=== PATIENT | male | born 1950 | race African-American/Black ===

== ENCOUNTER 2017-07-26 18:46 | Inpatient (IN) | payer MEDICARE ==
[~2017-07-26] VITALS: Ht 172.7 cm; Wt 85.7 kg
[2017-07-26] MEDS ORDERED: FINA5TAB11 PO (18:54)
[2017-07-26] MEDS ORDERED: ASPI-986 PO (18:54)
[2017-07-26] MEDS ORDERED: LOSA25TA12 PO (18:54)
[2017-07-26] MEDS ORDERED: SAXA1TBM3 PO (18:54)
[2017-07-26] MEDS ORDERED: AMLO2.5T45 PO (18:54)
[2017-07-26] MEDS ORDERED: METF500T4 PO (18:54)
[2017-07-26] MEDS ORDERED: METO-293 PO (18:54)
[2017-07-26] MEDS ORDERED: METO-396 PO (18:54)
[2017-07-26 19:13] LABS: BASOPHILS % 0.8 % (0.0-2.0); EOSINOPHILS % 1.4 % (0.0-5.0); HEMATOCRIT. 38.1 % (42.0-52.0); HEMOGLOBIN. 13.3 g/dL (14.0-18.0); LYMPHOCYTES % 27.5 % (20.0-50.0); MEAN CORPUSCULAR HEMOGLOBIN 30.2 pg (28.0-32.0); MEAN CORPUSCULAR VOLUME 86.3 fL (80.0-94.0); MEAN PLATELET VOLUME 7.7 fl (7.4-10.4); MONOCYTES % 9.9 % (2.0-8.0); NEUTROPHILS % 60.4 % (40.0-76.0); PLATELET 211 x1000/uL (130-400); RED BLOOD CELL COUNT 4.42 mill/uL (4.7-6.1); RED CELL DISTRIBUTION WIDTH 14.1 % (11.6-14.6)
[2017-07-26 19:19] LABS: CHLORIDE 101 mEq/L (98-107); INR 1.1
[2017-07-26 19:27] LABS: CARBON DIOXIDE 26 mEq/L (21-32); ETHANOL BLOOD < 10 mg/dL; LDL CHOLESTEROL 75 mg/dL (5-100)
[2017-07-26 19:29] LABS: TROPONIN I < 0.02 ng/mL (0.00-0.04)
[2017-07-26] MEDS ORDERED: MAGNESIUM/ALUMINUM HYDROXIDE/SIMETHICONE 30ML UDC PO PRN (20:15)
[2017-07-26] MEDS ORDERED: NA PHOS,M-B/NA PHOS,DI-BA ENEMA 118ML PR PRN (20:15)
[2017-07-26] MEDS ORDERED: ACETAMINOPHEN 325MG TABLET PO PRN (20:15)
[2017-07-26] MEDS ORDERED: ONDANSETRON HCL 4MG/2ML VIAL IV PRN (20:15)
[2017-07-26] MEDS ORDERED: NITROGLYCERIN 0.4MG TABLET SL SL PRN (20:15)
[2017-07-26] MEDS ORDERED: TRAMADOL 50MG TABLET PO PRN (20:15)
[2017-07-26] MEDS ORDERED: DEXTROSE 50% WATER 50ML SYRINGE IV PRN (20:15)
[2017-07-26] MEDS ORDERED: IPRATROPIUM/ALBUTEROL 0.5-3(2.5)MG/3ML NEB INH PRN (20:15)
[2017-07-26] MEDS ORDERED: DOCUSATE SODIUM 100MG CAPSULE PO PRN (20:15)
[2017-07-26] MEDS ORDERED: CLONIDINE 0.1MG TABLET PO PRN (20:15)
[2017-07-26] MEDS ORDERED: DIPHENHYDRAMINE 50MG/ML VIAL IV PRN (20:15)
[2017-07-26 21:43] LABS: T4 FREE 1.16 ng/dL (0.76-1.46)
[2017-07-26 21:47] LABS: CLARITY URINE CLOUDY (CLEAR); COLOR URINE YELLOW (YELLOW); GLUCOSE URINE NEGATIVE (NEGATIVE); KETONES URINE NEGATIVE (NEGATIVE); LEUKOCYTE ESTERASE URINE TRACE (NEGATIVE); NITRITE URINE NEGATIVE (NEGATIVE); OCCULT BLOOD URINE NEGATIVE (NEGATIVE); PROTEIN URINE 2+ (NEGATIVE); SPECIFIC GRAVITY URINE 1.019 (1.005-1.030)
[2017-07-26 22:13] LABS: VITAMIN B12 SERUM 862 pg/mL (211-911)
[2017-07-26 22:15] LABS: *AMPHETAMINES SCREEN URINE NEGATIVE (NEGATIVE); *BARBITURATES SCREEN URINE NEGATIVE (NEGATIVE); *BENZODIAZEPINES SCREEN URINE NEGATIVE (NEGATIVE); *COCAINE SCREEN URINE NEGATIVE (NEGATIVE); CANNABINOID URINE SCREEN NEGATIVE (NEGATIVE); METHADONE URINE SCREEN NEGATIVE (NEGATIVE); OPIATES URINE SCREEN NEGATIVE (NEGATIVE); PHENCYCLIDINE URINE SCREEN NEGATIVE (NEGATIVE)
[2017-07-26 22:16] LABS: FOLIC ACID (FOLATE) SERUM > 20.00 ng/mL (>5.38)
[2017-07-26 22:36] LABS: CREATINE KINASE 115 IU/L (39-308); TROPONIN I < 0.02 ng/mL (0.00-0.04)
[2017-07-26 22:37] LABS: CREATINE KINASE MB FRACTION 2.5 ng/mL (0.5-3.6)
[2017-07-26 22:40] VITALS: BP 167/110
[2017-07-26 23:00] VITALS: BP 167/110
[2017-07-26] MEDS ORDERED: TAMS0.4C31 PO (23:36)
[2017-07-27] VITALS: BP 166/102
[2017-07-27 04:00] VITALS: BP 165/105
[2017-07-27] MEDS: INSULIN LISPRO 100 UNITS/ML SUBCUT SCH ×4 (06:40→21:00)
[2017-07-27] MEDS: BLOOD SUGAR DIAGNOSTIC STRIP TEST SCH ×4 (06:40→21:51)
[2017-07-27 08:00] VITALS: BP 164/103
[2017-07-27 08:02] LABS: CREATINE KINASE 97 IU/L (39-308); TROPONIN I < 0.02 ng/mL (0.00-0.04)
[2017-07-27] MEDS: ASPIRIN 325MG EC TABLET PO SCH (08:34)
[2017-07-27] MEDS: FAMOTIDINE 20MG/2ML VIAL IV SCH (08:34)
[2017-07-27] MEDS: ENOXAPARIN 40MG/0.4ML SYR SUBCUT SCH (08:35)
[2017-07-27 12:00] VITALS: BP 167/99
[2017-07-27 16:21] VITALS: BP 194/123
[2017-07-27 16:35] LABS: T4 FREE 1.25 ng/dL (0.76-1.46)
[2017-07-27 16:41] LABS: AMMONIA 52 uMol/L (<32)
[2017-07-27 20:00] VITALS: BP 179/102
[2017-07-27] MEDS: AMLODIPINE 10MG TABLET PO SCH (21:44)
[2017-07-27] MEDS: ATORVASTATIN CALCIUM 10MG TABLET PO SCH (21:44)
[2017-07-28] VITALS (7 sets, daily range): BP systolic 109–158; BP diastolic 63–108
[2017-07-28] MEDS ORDERED: CLONIDINE 0.1MG TABLET PO PRN (02:15)
[2017-07-28] MEDS: INSULIN LISPRO 100 UNITS/ML SUBCUT SCH ×4 (06:29→21:00)
[2017-07-28] MEDS: BLOOD SUGAR DIAGNOSTIC STRIP TEST SCH ×4 (06:29→21:00)
[2017-07-28] MEDS: ENOXAPARIN 40MG/0.4ML SYR SUBCUT SCH (08:20)
[2017-07-28] MEDS: ASPIRIN 325MG EC TABLET PO SCH (08:20)
[2017-07-28] MEDS: FAMOTIDINE 20MG/2ML VIAL IV SCH (08:20)
[2017-07-28] MEDS: AMLODIPINE 10MG TABLET PO SCH (08:21)
[2017-07-28] MEDS: ATORVASTATIN CALCIUM 10MG TABLET PO SCH (22:10)
[2017-07-29] VITALS (7 sets, daily range): BP systolic 127–158; BP diastolic 74–94
[2017-07-29] MEDS: BLOOD SUGAR DIAGNOSTIC STRIP TEST SCH ×5 (06:41→20:53)
[2017-07-29] MEDS: INSULIN LISPRO 100 UNITS/ML SUBCUT SCH ×5 (06:44→20:58)
[2017-07-29] MEDS: ASPIRIN 325MG EC TABLET PO SCH (09:04)
[2017-07-29] MEDS: FAMOTIDINE 20MG/2ML VIAL IV SCH (09:04)
[2017-07-29] MEDS: AMLODIPINE 10MG TABLET PO SCH (09:05)
[2017-07-29] MEDS: ENOXAPARIN 40MG/0.4ML SYR SUBCUT SCH (09:06)
[2017-07-29] MEDS ORDERED: CLOPIDOGREL 75MG TABLET PO SCH (10:00)
[2017-07-29 12:09] LABS: AMMONIA 34 uMol/L (<32)
[2017-07-29] MEDS ORDERED: CEFTRIAXONE 1 G PREMIX 50 ML IV SCH (16:00)
[2017-07-29] MEDS: ATORVASTATIN CALCIUM 10MG TABLET PO SCH (20:53)
== END 2017-07-29 21:25 | DRG 91 ==
LOC: ER 19:03 → 5WST 19:57 → SUPCPDRO 20:12 → ENRESERV 21:34
PROVIDERS: ADMIT Internal Medicine; ATTEND Internal Medicine
DX: G92 Toxic encephalopathy (principal); N17.0 Acute kidney failure with tubular necrosis; E72.20 Disorder of urea cycle metabolism, unspecified; E44.1 Mild protein-calorie malnutrition; D64.9 Anemia, unspecified; E11.9 Type 2 diabetes mellitus without complications; R26.9 Unspecified abnormalities of gait and mobility; H54.8 Legal blindness, as defined in USA; I10 Essential (primary) hypertension; N40.0 Benign prostatic hyperplasia without lower urinary tract symptoms; Z79.4 Long term (current) use of insulin; Z86.73 Personal history of transient ischemic attack (TIA), and cerebral infarction without residual deficits; Z79.82 Long term (current) use of aspirin; Z79.84 Long term (current) use of oral hypoglycemic drugs; Z79.899 Other long term (current) drug therapy; Z68.28 Body mass index [BMI] 28.0-28.9, adult
CPT/HCPCS: 36415; 70450; 70551; 71010; 80053; 80061; 80305; 81001; 82140; 82550; 82553; 82607; 82746; 82962; 83036; 83540; 83550; 83721; 84439; 84443; 84481; 84484; 85025; 85610; 87086; 93005; 93306; 93880; 96372; 96374; 97162; 97166; 99285; G0482; J0696; J1650; J1815; J3490; J7040